=== PATIENT | male | born 1990 | race African-American/Black ===

== ENCOUNTER 2018-10-02 16:44 | Emergency (ER) | payer OTHER ==
[2018-10-02] MEDS ORDERED: Tetan/Diph/Pertus SYR(Tdap)* 0.5 ML SYR(BOOSTRIX) use SYR IM ONE (21:48)
[2018-10-02] MEDS ORDERED: Cephalexin CAP* 500 MG PO ONE (21:55)
[2018-10-02] MEDS ORDERED: Lidocaine 1%** 5 ML VIAL INJ ONE (22:34)
--- NOTE | 2018-10-02 23:49 | ED ---
Laceration/Wound HPI - HPI Summary HPI Summary: Patient from nursing home complains of laceration to left side face. Tetanus status unknown. Denies any other pain injury or symptoms. - History of Current Complaint Stated Complaint: HEAD LAC PER CO Time Seen by Provider: 10/02/18 21:44 Hx Obtained From: Patient Onset/Duration: Sudden Onset Onset Severity: Severe Current Severity: Severe Pain Intensity: 9 Pain Scale Used: 0-10 Numeric Associated Signs & Symptoms: Pain - Allergy/Home Medications Allergies/Adverse Reactions: Allergies Allergy/AdvReac Type Severity Reaction Status Date / Time No Known Allergies Allergy Verified 10/02/18 16:54 PMH/Surg Hx/FS Hx/Imm Hx Endocrine/Hematology History: Denies: Hx Anticoagulant Therapy Cardiovascular History: Denies: Hx Pacemaker/ICD History: Denies: Hx Dialysis Sensory History: Denies: Hx Eye Prosthesis Opthamlomology History: Denies: Hx Legally Blind EENT History: Denies: Hx Deafness Neurological History: Denies: Hx Dementia Psychiatric History: Denies: Hx Autism Infectious Disease History: No Infectious Disease History: Denies: Traveled Outside the [place] in Last 30 Days - Family History Known Family History: Positive: Non-Contributory - Social History Alcohol Use: None Substance Use Type: Reports: None Smoking Status (MU): Never Smoked Tobacco Review of Systems Constitutional: Negative Eyes: Negative ENT: Negative Cardiovascular: Negative Respiratory: Negative Gastrointestinal: Negative Genitourinary: Negative Musculoskeletal: Negative Skin: Other Neurological: Negative Psychological: Normal All Other Systems Reviewed And Are Negative: Yes Physical Exam - Summary Physical Exam Summary: Laceration along left side face extending from hairline on scalp down below jaw line. No penetration into the intraoral cavity. Sensation and motor function intact. No oral trauma noted. Triage Information Reviewed: Yes Vital Signs On Initial Exam: Initial Vitals Temp Pulse Resp BP Pulse Ox 98.5 F 112 16 131/91 98 10/02/18 16:46 10/02/18 16:46 10/02/18 16:46 10/02/18 16:46 10/02/18 16:46 Vital Signs Reviewed: Yes Appearance: Positive: Well-Appearing Skin: Positive: Warm Head/Face: Positive: Normal Head/Face Inspection Eyes: Positive: Normal ENT: Positive: Normal ENT inspection Neck: Positive: Supple Respiratory/Lung Sounds: Positive: Clear to Auscultation Cardiovascular: Positive: Normal Abdomen Description: Positive: Nontender Musculoskeletal: Positive: Normal Neurological: Positive: Normal Psychiatric: Positive: Normal AVPU Assessment: Alert - [place] Coma Scale Best Eye Response: 4 - Spontaneous Best Motor Response: 6 - Obeys Commands Best Verbal Response: 5 - Oriented Coma Scale Total: 15 Procedures - Laceration/Wound Repair 1 Location: face Description: Linear Anesthesia: Local, 1.0% Length, Depth and Shape: 18cm x 1cm Betadine Prep?: Yes Irrigated w/ Saline (ccs): 500 Laceration/Wound Explored: clean Debridement: minimal Number of Sutures: 29 - 6.0 prolene Layer Closure?: Yes - 7 sutures, 6.0 vicryl Sterile Dressing Applied?: Yes Diagnostics - Vital Signs Vital Signs Temp Pulse Resp BP Pulse Ox 10/02/18 21:35 98.6 F 84 16 125/73 98 10/02/18 19:17 98.9 F 85 16 152/72 100 10/02/18 16:46 98.5 F 112 16 131/91 98 - Laboratory Lab Statement: Any lab studies that have been ordered have been reviewed, and results considered in the medical decision making process. Laceration Repair Course/Dx - Course Course Of Treatment: Patient from nursing home complains of laceration to left side face. Tetanus status unknown. Denies any other pain injury or symptoms. Physical exam:Laceration along left side face extending from hairline on scalp down below jaw line. No penetration into the intraoral cavity. Sensation and motor function intact. No oral trauma noted. Vital signs within normal limits. Wound cleaned and repaired. Rx for Bactrim. Tetanus booster administered. - Clinical Impression Provider Diagnoses: Facial laceration Discharge - Sign-Out/Discharge Documenting (check all that apply): Patient Departure Patient Received Moderate/Deep Sedation with Procedure: No - Discharge Plan Condition: Stable Disposition: HOME Prescriptions: Sulfamethox/Trimethoprim DS* [Bactrim DS 800/160 TAB*] 1 tab PO BID 10 Days #20 tab Patient Education Materials: Care For Your Stitches (ED), Facial Laceration (ED ) Referrals: [place] OWEN,Rich Barragan [Primary Care Provider] - Additional Instructions: Take antibiotics as directed. Bactrim twice a day for 10 days. Keep wound clean and dry. Patient may shower starting tomorrow morning. Sutures out in 5 days. Return to the ED for any new or worsening symptoms. - Billing Disposition and Condition Condition: STABLE Disposition: Home
[2018-10-02 23:58] VITALS: BP 129/76
== END 2018-10-02 23:57 | disposition home or self-care (01) ==
LOC: ED 16:44
DX: S01.81XA Laceration without foreign body of other part of head, initial encounter (principal); Z23 Encounter for immunization; W45.8XXA Other foreign body or object entering through skin, initial encounter
CPT/HCPCS: 12016; 90471; 90715; 96372; 99282; A9270-GY